=== PATIENT | female | born 1960 | race Caucasian/White ===

== ENCOUNTER → 2016-06-24 | Outpatient (CLI) | payer MEDICAID, OTHER ==
[~2016-06-24] MED LIST: ALPR0.5T PO; ALPR0.5T7 PO; AMIT25TA9 PO; ASPI-587 PO; ASPI-983 PO; ASPI325T32 PO; ATOR20TA66 PO; BIOT25006 PO; BIOT25007 PO; BUTA1CAP39 PO; CHOL100045 PO; DILT240C PO; FERR-74 PO; HYDR200T PO; IRON1TAB95 PO; LAMO200T14 PO; NF-LAMO200 PO; PANT40TA PO; PANT40TA3 PO; RT-ALBUINH IH; SIMV20TA3 PO; TOPI200T2 PO; TOPI200T8 PO; TRAM50TA2 PO; VENL150C PO; VENL75CA PO; VITA400C60 PO; VITA400T9 PO; ZOLP5TAB PO; ZOLP5TAB7 PO
--- NOTE | 2016-06-24 15:16 | Diagnostic Imaging Report ---
PROCEDURE: CT abdomen and pelvis without contrast. TECHNIQUE: Multiple contiguous axial images were obtained through the abdomen and pelvis without the use of intravenous contrast. INDICATION: Abdominal pain. FINDINGS: The lung bases appear clear. The liver demonstrates diffuse fatty infiltration. Cholecystectomy clips are noted. The spleen, the pancreas, and adrenal glands appear unremarkable. The kidneys demonstrate no stones or hydronephrosis. The appendix is normal. There is no bowel obstruction. There is suggestion of prior hysterectomy. No significant free fluid or fluid collection in the abdomen or pelvis seen. The abdominal aorta is normal in caliber. No periaortic significantly enlarged lymph node is seen. Degenerative changes in the lower lumbar spine noted. There is question of a chronic pars defect on the left side at the L5 level. IMPRESSION: No urinary tract stones or hydronephrosis. Mild hepatic steatosis. Dictated by: Dictated on workstation # [id number]
== END ==
LOC: RAD 13:38
PROVIDERS: ATTEND Nurse Practitioner Adult Health
DX: R10.9 Unspecified abdominal pain (principal)
CPT/HCPCS: 74176